=== PATIENT | female | born 1980 | race Caucasian/White ===

== ENCOUNTER 2018-08-06 16:27 | Inpatient (IN) | payer OTHER ==
[~2018-08-06] VITALS: Ht 167.6 cm; Wt 108.9 kg
[2018-08-06] MEDS ORDERED: LIDOCAINE HCL 1% 20ML VIAL (Pyxis) INJ INFIL ONE (17:00)
[2018-08-06] MEDS ORDERED: AMPICILLIN SOD/SULBACTAM NA 3 G in SODIUM CHLORIDE 0.9% 100 ML IV SCH (17:00)
[2018-08-06] MEDS ORDERED: MORPHINE SULFATE 4 MG/ML CPJ (NOT FOR IM USE) IV ONE (17:45)
[2018-08-06 17:52] LABS: BASOPHILS % 0.4 % (0.0-2.0); EOSINOPHILS % 2.5 % (0.0-5.0); HEMATOCRIT. 31.3 % (36.0-48.0); HEMOGLOBIN. 9.6 g/dL (12.0-16.0); LYMPHOCYTES % 16.5 % (20.0-50.0); MEAN CORPUSCULAR HEMOGLOBIN 21.1 pg (28.0-32.0); MEAN CORPUSCULAR VOLUME 68.8 fL (81.0-99.0); MEAN PLATELET VOLUME 8.7 fl (7.4-10.4); MONOCYTES % 6.5 % (2.0-8.0); NEUTROPHILS % 74.1 % (40.0-76.0); PLATELET 375 x1000/uL (130-400); RED BLOOD CELL COUNT 4.54 mill/uL (4.2-5.4)
[2018-08-06 17:57] LABS: CHLORIDE 105 mEq/L (98-107); PROTHROMBIN TIME 10.1 sec (9.1-11.1)
[2018-08-06 18:43] LABS: PLATELET ESTIMATE NORMAL
[2018-08-06] MEDS ORDERED: MORPHINE SULFATE 2 MG/ML CPJ (NOT FOR IM USE) IV PRN (19:45)
[2018-08-06] MEDS ORDERED: ONDANSETRON HCL 4MG/2ML INJ IV PRN (19:45)
[2018-08-06] MEDS ORDERED: HYDROCODONE/ACETAMINOPHEN 5/325MG TABLET PO PRN (19:45)
[2018-08-06] MEDS ORDERED: MORPHINE SULFATE 4 MG/ML CPJ (NOT FOR IM USE) IV PRN (20:15)
[2018-08-06 21:30] VITALS: BP 105/62
[2018-08-06 22:15] VITALS: BP 105/62
[2018-08-06] MEDS ORDERED: IOHEXOL-300 100 ML BOTTLE ONE (23:04)
[2018-08-06] MEDS: ACETAMINOPHEN 325MG TABLET PO PRN (23:33)
[2018-08-06] MEDS: CLINDAMYCIN 900 MG in DEXTROSE 5% WATER 50 ML IV SCH (23:33)
[2018-08-07] VITALS (7 sets, daily range): BP systolic 102–120; BP diastolic 59–80
[2018-08-07] MEDS: CLINDAMYCIN 900 MG in DEXTROSE 5% WATER 50 ML IV SCH (06:34)
[2018-08-07] MEDS: ACETAMINOPHEN 325MG TABLET PO PRN (09:00)
[2018-08-07 09:54] LABS: BASOPHILS % 0.5 % (0.0-2.0); EOSINOPHILS % 2.8 % (0.0-5.0); HEMATOCRIT. 29.2 % (36.0-48.0); HEMOGLOBIN. 9.2 g/dL (12.0-16.0); LYMPHOCYTES % 20.9 % (20.0-50.0); MEAN CORPUSCULAR HEMOGLOBIN 21.6 pg (28.0-32.0); MEAN CORPUSCULAR VOLUME 68.9 fL (81.0-99.0); MEAN PLATELET VOLUME 8.5 fl (7.4-10.4); NEUTROPHILS % 68.8 % (40.0-76.0); PLATELET 358 x1000/uL (130-400); RED BLOOD CELL COUNT 4.25 mill/uL (4.2-5.4); RED CELL DISTRIBUTION WIDTH 19.3 % (11.6-14.6)
[2018-08-07 10:20] LABS: CHLORIDE 104 mEq/L (98-107)
[2018-08-07] MEDS ORDERED: VANCOMYCIN 1,750 MG in DEXT 5% WATER 500 ML IV SCH (18:00)
[2018-08-07] MEDS ORDERED: DIPHENHYDRAMINE 25MG CAPSULE PO NR (21:15)
[2018-08-08] MEDS ORDERED: VANCOMYCIN 1500MG in DEXTROSE 5% WATER 250ML IV SCH (06:00)
== END 2018-08-07 21:35 | disposition home or self-care (01) | DRG 603 ==
LOC: ER 17:40 → 6EST 17:51 → EDBEDREQSVC 17:54 → EDBEDREQTM 17:54 → EDBEDREQ 17:54 → ENRESERV 20:29
PROVIDERS: ADMIT Internal Medicine; ATTEND Internal Medicine
DX: L03.113 Cellulitis of right upper limb (principal); E66.9 Obesity, unspecified; D64.9 Anemia, unspecified; Z79.899 Other long term (current) drug therapy; Z68.38 Body mass index [BMI] 38.0-38.9, adult
CPT/HCPCS: 36415; 73080; 73201; 80048; 85651; 86140; 87070; 87077; 96365; 96375; 99285; J0295; J2270; J2405; J3370; J3490; J7050; J7060; Q0163; Q9967